=== PATIENT | male | born 2000 | race Caucasian/White ===

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

== ENCOUNTER 2021-10-07 03:21 | Emergency (ER) | payer BC, OTHER ==
[~2021-10-07] VITALS: Ht 170.2 cm; Wt 79.4 kg
[2021-10-07 03:30] VITALS: BP_SYST 123
[2021-10-07] MEDS ORDERED: KETOROLAC TROMETHAMINE 60 MG/2 ML VIAL IM ONE (05:00)
[2021-10-07] MEDS ORDERED: NACL 0.9% 1,000 ML IV ONE (05:30)
[2021-10-07] MEDS ORDERED: PIPERACILLIN/TAZO 3.375 GM in NS 50 ML IV ONE (05:30)
[2021-10-07 05:57] LABS: MEAN CORPUSCULAR HEMOGLOBIN 29 pg (27-31)
[2021-10-07 06:05] LABS: BASOPHILS % (AUTO) 0.6 % (0.0-2.0); EOSINOPHILS # (AUTO) 0.1 K/uL (0.0-0.4); EOSINOPHILS % (AUTO) 1.8 % (0.0-4.0); HEMATOCRIT 46.6 % (36-54); HEMOGLOBIN 15.6 g/dL (14.0-18.0); MEAN CORPUSCULAR HGB CONC 34 % (32-36); MEAN CORPUSCULAR VOLUME 88 fL (79.0-98.0); MONOCYTES # (AUTO) 0.4 K/uL (0.0-1.0); NEUTROPHILS # (AUTO) 2.5 K/uL (1.8-7.7); NEUTROPHILS % (AUTO) 40.6 % (40.0-70.0); PLATELET COUNT (AUTO) 241 K/uL (130-430); RED BLOOD CELL COUNT(AUTO) 5.33 MIL/uL (4.2-6.2); RED CELL DISTRIBUTION WIDTH 13.8 % (9.0-15.0); WHITE BLOOD COUNT (AUTO) 6.1 K/uL (4.8-10.8)
[2021-10-07 06:07] LABS: CREATININE 0.89 mg/dL (0.55-1.30); POTASSIUM 4.1 mmol/L (3.5-5.1)
[2021-10-07 06:12] LABS: ALBUMIN 4.4 g/dL (3.4-4.8); TOTAL BILIRUBIN 0.8 mg/dL (0.0-1.0)
[2021-10-07] MEDS ORDERED: PIPERACILLIN/TAZOBACTAM 3.375 GM/VIAL (ZOSYN) IV ONE (06:24)
[2021-10-07] MEDS ORDERED: TRAM50TA PO (06:37)
[2021-10-07 07:33] VITALS: BP_SYST 126
== END 2021-10-07 07:33 | disposition home or self-care (01) ==
LOC: SED 03:21
DX: R10.31 Right lower quadrant pain (principal)
CPT/HCPCS: 36415; 74176; 76376; 80053; 83690; 85025; 87040; 96365; 99284; J2543